=== PATIENT | male | born 1965 | race Caucasian/White ===

== ENCOUNTER 2022-11-05 11:10 | Day surgery (SDC) | payer BC ==
[2022-11-02 12:58] VITALS: BMI 39.9
--- NOTE | 2022-11-04 13:47 | P.GSHP ---
History of Present Illness H&P Date: 11/04/22 Chief Complaint: Left renal colic The patient is a 57-year-old white male with a history of calcium oxalate monohydrate urolithiasis. He underwent ureteroscopic removal of a right ureteral calculus in March 2022. He now presents with left renal colic. CT scan shows mild left hydronephrosis due to a 4 mm left distal ureteral calculus. He was offered the options of medical expulsion therapy versus surgery. He is scheduled to leave to [place] for work on November 08, and thus desires ureteroscopic removal of the calculus. - Constitutional Constitutional: Denies chills, Denies fever - Genitourinary (Male) Genitourinary: Reports flank pain, Reports hematuria, Reports kidney stones Past Medical History Past Medical History: Diabetes Mellitus, GERD/Reflux, Hyperlipidemia, Hypertension Additional Past Medical History / Comment(s): KIDNEY STONES History of Any Multi-Drug Resistant Organisms: None Reported Past Surgical History: Heart Catheterization, Hernia Repair, Orthopedic Surgery, Tonsillectomy Additional Past Surgical History / Comment(s): LT BUNIONECTOMY X 2, COLONOSCOPY, CERVICAL FUSION, RT ANKLE SX, RT KIDNEY STONE, LOOP RECORDER, SKIN GRAFT LT ARM Past Anesthesia/Blood Transfusion Reactions: No Reported Reaction Smoking Status: Former smoker - Past Family History Father Family Medical History: Cancer Additional Family Medical History / Comment(s): SKIN Medications and Allergies Home Medications Medication Instructions Recorded Confirmed Type Ascorbic Acid [Vitamin C] 1,000 mg PO DAILY 11/02/22 11/02/22 History Aspirin [Adult Low Dose Aspirin EC] 81 mg PO DAILY 11/02/22 11/02/22 History Cholecalciferol [Vitamin D3 (125 125 mcg PO DAILY 11/02/22 11/02/22 History Mcg = 5000 Iu)] Ezetimibe [Zetia] 10 mg PO DAILY 11/02/22 11/02/22 History HYDROcodone/APAP 5-325MG [Pattison 1 tab PO Q6HR PRN 11/02/22 11/02/22 History 5-325] Ibuprofen [Motrin] 800 mg PO Q8H PRN 11/02/22 11/02/22 History Metoprolol Tartrate 25 mg PO BID 11/02/22 11/02/22 History Montelukast [Singulair] 10 mg PO DAILY 11/02/22 11/02/22 History Multivit,Calc,Min/FA/K1/Lycop 1 each PO DAILY 11/02/22 11/02/22 History [One-A-Day Men's Complete Tab] Naproxen [Naprosyn] 500 mg PO DAILY PRN 11/02/22 11/02/22 History Omeprazole [PriLOSEC] 20 mg PO DAILY 11/02/22 11/02/22 History Phentermine HCl 37.5 mg PO DAILY 11/02/22 11/02/22 History Pregabalin [Lyrica] 100 mg PO TID 11/02/22 11/02/22 History Semaglutide [Ozempic] 1 mg SQ EDOUARD 11/02/22 11/02/22 History Vitamin E (Dl,Tocopheryl Acet) 400 unit PO DAILY 11/02/22 11/02/22 History [Vitamin E (400 Iu = 180 mg)] lisinopriL [Zestril] 10 mg PO DAILY 11/02/22 11/02/22 History metFORMIN HCL ER [Glucophage XR] 500 mg PO BID 11/02/22 11/02/22 History Allergies Allergy/AdvReac Type Severity Reaction Status Date / Time benzonatate AdvReac Unknown Verified 11/02/22 12:52 gabapentin AdvReac MUSCLE Verified 11/02/22 12:52 CRAMPS silver AdvReac TEARS SKIN Verified 11/02/22 12:52 [From Tegaderm AG Mesh] OFF simvastatin AdvReac Itching Verified 11/02/22 12:52 Surgical - Exam - General well developed, well nourished, no distress - Respiratory normal respiratory effort - Psychiatric oriented to time, oriented to person, oriented to place, speech is normal, memory intact Results - Imaging CT scan - abdomen: report reviewed, image reviewed Assessment and Plan (1) Calculus of ureter Status: Acute Code(s): N20.1 - CALCULUS OF URETER SNOMED Code(s): 19638500 Plan: Cystoscopy, left ureteroscopy with Holmium laser lithotripsy and possible stone basketing. An attempt will be made to avoid the placement of a ureteral stent, though it may be necessary. The procedure has been reviewed in detail with the patient. He is aware of potential risks, which include anesthesia, bleeding, infection, inability to successfully remove the calculus, and ureteral injury.
[~2022-11-05 11:10] MED LIST: DEXAMETHASONE SOD PHOSPHATE 4 MG/ML 1 ML VIAL IV ONE; HYDROmorphone 0.5 MG/0.5 ML SYRINGE IVP PRN; LACTATED RINGERS 1,000 ML IV SCH; LIDOCAINE 1% (10MG/ML) FOR IV START INTRADERMA PRN; METOCLOPRAMIDE 5 MG/ML 2 ML VIAL IVP PRN; ONDANSETRON 4 MG/2 ML VIAL IVP ONE; ceFAZolin 3 GM in SODIUM CHLORIDE 0.9% 100 ML IVPB PRN
--- NOTE | 2022-11-05 11:26 | XR ---
EXAMINATION TYPE: XR KUB DATE OF EXAM: 11/05/2022 HISTORY: Pain Comparison: None.Single KUB is submitted for interpretation. Findings: Right renal calculi: None Visualized. Right ureteral calculi: None Visualized. Left renal calculi: None Visualized. Left ureteral calculi: 4 mm left UVJ calculus. Pelvic calcifications: Prostate calcifications noted. Bowel gas pattern is unremarkable. No free air. No mass effects. IMPRESSION: 1. 4 mm left UVJ calculus.
[2022-11-05 12:17] LABS: Glucose,Whole Blood 94 mg/dL (70-110)
[2022-11-05] MEDS ORDERED: ONDANSETRON 4 MG/2 ML VIAL ONE (12:18)
[2022-11-05] MEDS: fentaNYL (PF) 50 MCG/1 ML VIAL IVP ONE ×2 (12:58→13:05)
[2022-11-05] MEDS ORDERED: WATER FOR INJECTION, STERILE 10 ML VIAL IV ONE (13:11)
[2022-11-05] MEDS ORDERED: SUCCINYLCHOLINE CHLORIDE 200 MG/10 ML VIAL IV ONE (13:11)
[2022-11-05] MEDS ORDERED: ePHEDrine 50 MG/ML 1 ML VIAL ONE (13:11)
[2022-11-05] MEDS ORDERED: PHENYLEPHRINE-0.9% NACL SYG 1,000 MCG/10 ML SYRINGE ONE (13:11)
[2022-11-05] MEDS ORDERED: MIDAZOLAM 2 MG/2 ML VIAL ONE (13:11)
[2022-11-05] MEDS ORDERED: PROPOFOL 10 MG/ML 20 ML VIAL IV ONE (13:11)
[2022-11-05] MEDS ORDERED: ROCURONIUM 10 MG/ML (5 ML VIAL) IV ONE (13:11)
[2022-11-05] MEDS ORDERED: fentaNYL (PF) 50 MCG/ML 2 ML AMP ONE (13:11)
[2022-11-05] MEDS ORDERED: LIDOCAINE 2% INJ 20 MG/ML (2 ML VIAL) ONE (13:11)
--- NOTE | 2022-11-05 14:20 | FL ---
Intraoperative/procedural fluoroscopic services were provided for left ureteral stone cystoscopy. Tot al fluoroscopy time is 1.2 seconds with a total of 1 submitted image to PACS. Total DAP 0.2407 Gycm2. Please see the operative note for further details.
[2022-11-05] MEDS ORDERED: KETOROLAC 15 MG/ML 1 ML VIAL IVP STA (14:22)
--- NOTE | 2022-11-05 14:29 | P.OP ---
Date of Procedure: 11/05/22 Preoperative Diagnosis: Left ureteral calculus Postoperative Diagnosis: Same Procedure(s) Performed: Cystoscopy, left ureteroscopy with Holmium laser lithotripsy Anesthesia: MYLA Surgeon: Moses Skinner Estimated Blood Loss (ml): 0 IV fluids (ml): 500 Pathology: other (Left ureteral calculus fragments, sent for chemical analysis) Condition: stable Disposition: PACU Indications for Procedure: The patient is a 57-year-old white male with a history of calcium oxalate monohydrate urolithiasis. He underwent ureteroscopic removal of a right ureteral calculus in March 2022. He now presents with left renal colic. CT scan shows mild left hydronephrosis due to a 4 mm left distal ureteral calculus. He was offered the options of medical expulsion therapy versus surgery. He is scheduled to leave to [place] for work on November 08, and thus desires urete roscopic removal of the calculus. Operative Findings: Left distal ureteral calculus, fragmented and removed completely. Description of Procedure: The patient was taken to the operating room and placed in the dorsolithotomy position, with legs supported in Sylvester stirrups. The external genitalia was prepped and draped sterilely. The 30 lens was used to introduce the 21-Bulgarian Wolfe cystoscopic sheath through the urethra and into the bladder under direct vision. The prostatic urethra showed evidence of mild lateral lobe enlargement. The bladder was examined in its entirety. Both ureteral orifices were normal anatomic location and configuration, and clear urine effluxed from both. No tumors or foreign bodies were seen. A 10-Bulgarian cone-tipped catheter was passed through the cystoscope. It was advanced through the left ureteral orifice to dilate the orifice. The cystoscope was then removed, and the Wolfe semirigid ureteroscope was advanced into the bladder. The left ureteral orifice was cannulated, and the ureteroscope was slowly advanced up to the calculus, which was only approximately 1 cm cephalad to the ureteral orifice. The 365 micron Holmium laser probe was passed through the ureteroscope, and lithotripsy was performed. The calculus fragmented well, and the calculus fragments migrated distally into the bladder. Final inspection of the ureter showed no evidence of ureteral perforation. Moderate edema was noted at the site of stone impaction. There were no residual calculus fragments. The ureteroscope was removed, and the cystoscope was replaced into the bladder. Stone fragments were removed and sent for chemical analysis. The bladder was emptied and the cystoscope removed. The patient tolerated the procedure well and was taken to the recovery room in stable condition. IAN CORTÉS Report: Procedure Acuity: Urgent Stone Size and Location: 4 mm, left distal ureter Ureteral Dilation: No Ureteral Access Sheath Used: No Stone Sent for Analysis: Yes All Stones/Fragments Were Removed: Yes Complications: No Preoperative Antibiotics Given: Yes Stent Placed: No Discharge Medications: Toradol
[2022-11-05 14:41] VITALS: TEMP 97.1
[2022-11-05] MEDS ORDERED: LACTATED RINGERS 1,000 ML IV ONE (14:44)
[2022-11-05 15:04] LABS: Glucose,Whole Blood 121 mg/dL (70-110)
[2022-11-05 15:17] VITALS: BP 116/71; PULSE 77; RESP 14
== END 2022-11-05 15:30 | disposition home or self-care (01) ==
LOC: OR 11:10
PROVIDERS: ATTEND Urology
DX: N20.1 Calculus of ureter (principal); E11.9 Type 2 diabetes mellitus without complications; I10 Essential (primary) hypertension; E78.5 Hyperlipidemia, unspecified; Z87.891 Personal history of nicotine dependence; Z79.82 Long term (current) use of aspirin; Z79.899 Other long term (current) drug therapy
CPT/HCPCS: 82365; 74018; 52353; C1758; J2250; J0330; J1100; J0690; J2405; J3010 ×2; J1885; J2704; J2001; J2371